=== PATIENT | female | born 1935 | race Caucasian/White ===

== ENCOUNTER → 2024-07-06 08:11 | Outpatient (REF) | payer MEDICARE, OTHER, SELFPAY | LOC: HWRCS 08:11 | PROVIDERS: ATTENDING PHYSICIAN Internal Medicine Cardiovascular Disease; FAMILY PHYSICIAN Family Medicine | DX: I35.0 Nonrheumatic aortic (valve) stenosis (principal) | CPT/HCPCS: 93306 ==

== ENCOUNTER 2024-09-18 13:33 | Inpatient (IN) | payer MEDICARE, OTHER, SELFPAY ==
[2024-09-18] VITALS (8 sets, daily range): BP systolic 110–183; BP diastolic 59–96
[2024-09-18 11:44] LABS: % Basophils 0.6 % (0-2); % Eosinophils 0.4 % (0-6); % Immature Granulocytes 0.4 % (0-0.5); % Lymphocytes 21.9 % (20.5-51.1); % Monocytes 10.7 % (1.7-9.3); Absolute Basophils 0.1 10^3/uL (0-0.2); Absolute Lymphocytes 2.4 10^3/uL (1.2-3.4); Absolute Monocytes 1.2 10^3/uL (0.1-0.6); Absolute Neutrophils 7.3 10^3/uL (1.4-6.5); Hematocrit 36.9 % (37.0-47.0); Hemoglobin 12.4 g/dL (12.0-16.0); Mean Corp Hgb Conc. 33.6 g/dL (33.0-37.0); Mean Corpuscular Volume 89.3 fL (81.0-99.0); Nucleated Red Blood Cells % 0 %; Platelet Count 342 10^3/uL (130-400); Red Blood Cell Count 4.13 10^6/uL (4.20-5.40); Red Cell Dist. Width 14.8 % (11.5-14.5)
[2024-09-18 11:58] LABS: ALT (SGPT) 24 U/L (0-35); AST (SGOT) 33 U/L (14-36); Albumin 4.2 g/dl (3.5-5.0); Alkaline Phosphatase 55 U/L (38-126); Blood Urea Nitrogen 29 mg/dl (7-17); Calcium 9.6 mg/dl (8.4-10.2); Carbon Dioxide 24 mmol/L (22-30); Chloride 102 mmol/L (98-107); Glucose 122 mg/dl (70-99); Potassium 3.7 mmol/L (3.5-5.1); Sodium 139 mmol/L (135-145); Total Bilirubin 0.4 mg/dl (0.2-1.3); Total Protein 7.3 g/dl (6.3-8.2); eGFR > 60.00
--- NOTE | 2024-09-18 12:06 | ED.GENMED ---
History of Present Illness
General
Chief Complaint: Breathing Problem
Time Seen by Provider: 09/18/24 11:55
History of Present Illness
History of Present Illness:
Patient is a 89-year-old woman with history of asthma, hypertension presenting to the emergency department with difficulty breathing. Patient states that 5 days ago she was diagnosed with upper respiratory infection. She feels of her asthma was
getting worse that she talk to her primary care doctor who started her on penicillin as well as prednisone. She did take 60 mg for the past 3 days and is now taking 40 mg. Today she noticed that the breathing was worse and he checked her oxygen at
home and it was 88%. She does take albuterol 2 puffs twice a day and did take nebulizer treatments over the weekend which did help. She did not take any nebulizers today. She is not on oxygen. No leg swelling hemoptysis chest pain. No nausea no
vomiting. No decreased p.o.. Of note patient's has had similar symptoms. Did test COVID and flu which was negative.
Past History
Past History
ED Past Medical History: HTN and Hypercholesterolemia
ED Past Surgical History: Appendectomy, Bowel resection and Gynecological
Social History
Tobacco: Non-smoker
Alcohol: None
Drug: None
Living: with family
Employment: Retired
Phy Exam
Physical Exam
Physical Exam:
GENERAL: in no acute distress
HEENT: normocephalic, extraocular movements intact, moist oral mucosa
NECK: normal inspection
RESPIRATORY: no respiratory distress, wheezing in all lung handy
CARDIOVASCULAR: regular rate and rhythm
ABDOMEN/: soft, non-distended, non-tender to palpation, no rebound or guarding
EXTREMITIES: non-tender, no edema/swelling
NEUROLOGIC: awake and alert, moves all extremities
SKIN: warm
Scores
Heart Failure Risk
Heart Failure Risk Score: Not Applicable
Course
Orders/Labs/Results
Orders:
Orders
09/18/24 11:15
Electrocardiogram (*1) Urgent
Reason for Study: Shortness of Breath
EKG- Treatment ONCE
09/18/24 11:19
CXR2 [CR Chest - 2 Views ] Urgent
Comment:
Reason For Exam: sob
09/18/24 11:23
Complete Blood Count/With Diff Urgent
Comprehensive Metabolic Panel Urgent
NT-proBNP Urgent
Troponin I Urgent
09/18/24 12:05
Ipratropium/Albuterol Sulfate [Duoneb] 3 ml .ROUTE .STK-MED ONE
Ipratropium/Albuterol Sulfate [Duoneb] 3 ml INH R NOW ONE
Abnormal Lab Results
09/18/24
11:23
WBC 11.0 H 10^3/uL
(4.8-10.8)
RBC 4.13 L 10^6/uL
(4.20-5.40)
Hct 36.9 L %
(37.0-47.0)
RDW 14.8 H %
(11.5-14.5)
Absolute Neuts (auto) 7.3 H 10^3/uL
(1.4-6.5)
Absolute Monos (auto) 1.2 H 10^3/uL
(0.1-0.6)
Monocytes % 10.7 H %
(1.7-9.3)
BUN 29 H mg/dl
(7-17)
Glucose 122 H mg/dl
(70-99)
09/18/24 11:23
09/18/24 11:23
Vital Signs
Initial and Last Documented VS:
Initial Vital Signs
Temp Pulse Resp BP Pulse Ox
98.6 F 86 16 142/80 91
09/18/24 11:13 09/18/24 11:13 09/18/24 11:13 09/18/24 11:13 09/18/24 11:13
Last Documented Vital Signs
Temp Pulse Resp BP Pulse Ox
98.6 F 84 25 162/85 90
09/18/24 11:13 09/18/24 11:48 09/18/24 11:48 09/18/24 11:47 09/18/24 11:52
MDM/Problems Addressed
Differential Diagnosis Includes:
Patient is a 89-year-old woman with history of asthma presenting to the emergency department with difficulty breathing in the setting of an asthma exacerbation for the past 5 days. Vitals here notable for room air oxygen of 90%. On 2 L she is in
the mid to high 90s. Exam does show wheezing in all lung handy. Differential consists of superimposed pneumonia versus viral infection causing the asthma exacerbation. History exam not consistent with PE or atypical ACS. Will check blood work
chest x-ray. Will give DuoNeb. Patient will need admission.
*Critical Care Note
Total Time (30-74mins, 75-104mins- exclusive of procedures): Not Applicable
Update Note
Update Note:
Chest x-ray per my interpretation with no focal opacity. Discussed with hospitalist who accepted patient to their service.
ED Attending Note
-
Portions of this chart may have been created with voice recognition software.� Occasional wrong word or��sound alike� substitutions may have occurred due to the inherent limitations of voice recognition software.
Discharge Plan
Departure
Patient Disposition: Admit
Date of Disposition: 09/18/24
Time of Disposition: 12:10
Presentation/result/management discussed w/ accepting MD/DO: Hospitalist
Discharge Problem:
Asthma
Prescriptions:
No Action
prednisone 20 mg Tablet
60 mg PO UD
Rx Instructions:
take 60mg daily for 3 dasy then 40mg daily for 3 dasy then 20mg daily until completed
penicillin V potassium 500 mg Tablet
500 mg PO BID
ibuprofen [Advil] 200 mg Tablet
400 mg PO Q6HPRN PRN (Reason: mild pain)
docusate sodium [Colace] 100 mg Capsule
200 mg PO BID
budesonide-formoterol [Symbicort] 160-4.5 mcg/actuation Hfa Aerosol Inhaler
2 inh INHALATION R BID
metoprolol succinate 25 MG tablet extended release 24 hr
25 mg PO DAILY
Interventions
Interventions:
*Risk Screen - Suicide Last Done: 09/18/24 11:13
*Neglect/Abuse Screening Last Done: 09/18/24 11:13
ED- Cardiac Assessment Last Done: 09/18/24 11:52
ED- Pulmonary Assessment Last Done: 09/18/24 11:52
Discharge Date and Time
Print Language: FAROESE
[2024-09-18 12:08] LABS: NT-proBNP 1140 pg/ml; Troponin I < 0.012 ng/ml
[2024-09-18] MEDS: DUONEB 3 ML INH ×3 (12:13→19:33)
--- NOTE | 2024-09-18 12:40 | HPS.HSE ---
Addendum entered and electronically signed by Perico Mendoza MD 09/18/24 13:18:
I saw and examined the patient.
The SENIOR NETWORK SECURITY ENGINEER or PA's note was reviewed and I agree with the note.
Comment:
89F HX asthma, HTN a/w
Acute Hypoxic RI due to to Acute Asthma Exacerbation
- O2 support
- Pulmicort Nebs
- DuoNeb QID and PRN
- Mucinex
- Prednisone 40mg Daily
- Hold on further antibiotics
Moderate/Severe Aortic Stenosis
- component of fluid retention from outpatient steroids
-- Lasix 40mg IV x one dose now and monitor for response
- f/u Is&Os and Daily Weights
DVT Px; LMWH
Full code
IP TLM
Original Note:
Family Physician
-
Family Physician:
Chief Complaint
-
Shortness of Breath
History of Present Illness
Patient is an 89 y/o female past medical history of asthma, hypertension and moderate/severe aortic stenosis who presents with increased shortness of breath. Patient was seen by her PCP last week for an asthma exacerbation. At which time she was
started on prednisone, penicillin and Symbicort. She report using nebulizers at home over the weekend with some improvement but today symptoms worsened and did not improve with nebulizer. She reports cough that is productive of yellow/green mucus.
She admits to dyspnea on exertion, and orthopnea. She denies lower extremity edema. She denies fevers, sweats or chills.
Medical History
Past Medical History
Past Medical History: Reports Other
Additional Past Medical History:
Essential Hypertension
Asthma
Past Surgical History: Reports Other
Additional Past Surgical History:
Splenectomy
Appendectomy
Colon Resection with Colostomy
Partial Hysterectomy
Right Total Knee Replacement
Left Hip Replacement
Social History
Tobacco: Non-smoker
Alcohol: None
Personal:
Living: With Family
Family History
Family History: Not pertinent
Allergies / Home Medications
Allergies reflects when Allergies were last updated in [facility].
Home Medications with original date entered in [facility]
Allergy/Medication List:
Allergies
Allergy/AdvReac Type Severity Reaction Status Date / Time
moxifloxacin [From Avelox] Allergy Intermediate Hives Verified 09/18/24 11:15
Home Medications
budesonide-formoterol HFA 160 mcg-4.5 mcg/actuation aerosol inhaler (Symbicort) 2 inh inhalation R BID 09/18/24
docusate sodium 100 mg capsule (Colace) 200 mg PO BID 09/18/24
ibuprofen 200 mg tablet (Advil) 400 mg PO Q6HPRN PRN mild pain 09/18/24
metoprolol succinate 25 mg tablet,extended release 24 hr 25 mg PO DAILY 09/18/24
penicillin V potassium 500 mg tablet 500 mg PO BID 09/18/24
prednisone 20 mg tablet 60 mg PO UD 09/18/24
Review of Systems
-
A 12 point ROS was completed and negative except as noted: Yes
Constitutional: Denies Fever or Chills
Respiratory: Reports See HPI
Cardiac: Denies Chest Pain or Palpitations
Physical Exam
Vital Signs
Vital Signs
Temp Pulse Resp BP Pulse Ox
98.6 F 84 25 162/85 90
09/18/24 11:13 09/18/24 11:48 09/18/24 11:48 09/18/24 11:47 09/18/24 11:52
Physical Exam
General: Comfortable and Conversant
HEENT: Moist mucous membranes, Oxygen (Nasal Cannula) and Other (Nebulizer mask in place)
Respiratory: Wheezes (Diffuse) and Non Labored Respirations
Cardiac: S1/S2 and Regular Rhythm
GI: Soft, Non Tender and Other (Protuberant)
Rectal: Deferred by Provider
Musculoskeletal: No Clubbing, No Cyanosis and No Edema
Skin: Warm and Dry
Neuro: Awake, Alert, Oriented and Nonfocal/grossly intact
Psych: Calm
Laboratory Results
-
09/18/24 11:23
09/18/24 11:23
Laboratory Results
Total Bilirubin 0.4 mg/dl (0.2-1.3) 09/18/24 11:23
AST 33 U/L (14-36) 09/18/24 11:23
ALT 24 U/L (0-35) 09/18/24 11:23
Alkaline Phosphatase 55 U/L (38-126) 09/18/24 11:23
Troponin I < 0.012 ng/ml 09/18/24 11:23
Chest X-Ray:
1. Mild acute interstitial cardiogenic pulmonary edema.
2. Mild cardiomegaly.
3. Moderate bilateral lung hyperinflation suggesting chronic obstructive pulmonary disease (COPD).
Echo June 2024:
Mild concentric LVH. Normal left ventricular size and systolic function with with EF 60-65%.
Moderate to Severe Aortic Stenosis.
Moderate Aortic Regurgitation
Data Reviewed
-
Diagnostic Radiology: Report Reviewed by me
Lab Data: Labs Reviewed by me
Old Records: Reviewed
Impression/Plan
-
Acute Hypoxic Respiratory Insufficiency secondary to Acute Asthma Exacerbation
-Continue supplemental oxygen with plans to wean prior to discharge
-Continue Pulmicort Nebs
-Continue DuoNeb QID and PRN
-Continue Mucinex
-Continue Prednisone 40mg Daily
-Hold on further antibiotics
Moderate/Severe Aortic Stenosis
-Suspect component of fluid retention from outpatient steroids
-Give Lasix 40mg IV x one dose now and monitor for response
-Monitor Is&Os and Daily Weights
Essential Hypertension
-Continue metoprolol with hold parameters
Morbid Obesity due to Excess Calories
-Affects all aspects of care
DVT proph: Lovenox
Code Status: Full Code
[2024-09-18] MEDS: LASIX 40 MG IV (13:23)
--- NOTE | 2024-09-18 15:26 | CON.CAR ---
Addendum entered and electronically signed by Brendan Alaniz DO 09/18/24 16:54:
I saw and examined the patient.
The Industrial Maintenance Tech's note was reviewed and I agree with the note.
Comment:
Plan:
HPI: Patient came to [facility] today with SOB and is being admitted with asthma exacerbation and cardiology is consulted for h/o . Patient lives in her own apartment at [facility]. Patient says that within the last week she started with URI symptoms and
felt as though she had increased wheezing. She has a history of asthma exacerbation in the setting of URI and so her PCP started her on antibiotics and steroids, but today she felt worse and her pulse ox was down to 88%. Patient came to ER and
is now admitted with acute asthma exacerbation. Cardiology is consulted for history of . Patient has a remote history of syncope in the with workup at length and all and then also locally when she used to follow-up with Dr. James's
group. She reports tilt table testing and cardiac catheterization in the that were unremarkable and overall her burden of vasovagal syncope has decreased over the years. Patient then saw Dr. Sexton in the office for chest pain last year
and had a Lexiscan nuclear stress test that showed a fixed apical defect with no ischemia. Patient also had an echo around that time that showed moderate AAS with a mean gradient of 23 mmHg. Patient last saw Dr. Sexton in the office on
06/19/2024 and at that point was overall feeling well and they made a plan to recheck her echo which was performed on 07/06/2024 and showed that she now had moderate to severe with a mean gradient of 35 mmHg. Patient says that she has not had any
chest pain, but overall has had more dyspnea on exertion over the last few months. No chest pain currently and patient overall feels better with breathing treatments.
Check echo to reeval . May need to consider TAVR work up as outpt pending findings
Cont tx for multifactorial dyspnea including HF and asthma exacerbation.
Cont IV lasix diuresis. She received IV lasix in ER.
HF teaching.
She has baseline orthopnea which has worsened.
Cont pulm toilet and tx for asthma exacerbation.
Daughter has been updated and agrees with plan.
�
Original Note:
Consultation
Consultation Request
Date/Time Consultation Requested: 09/18/24
Date/Time Consultation Performed: 09/18/24
Requesting Provider: Dr. Mendoza
Performing Provider: Dr. Alaniz
Reason for Consultation: Possible acute HF,
Medical History
-
History of Present Illness:
Patient came to [facility] today with SOB and is being admitted with asthma exacerbation and cardiology is consulted for h/o . Patient lives in her own apartment at [facility]. Patient says that within the last week she started with URI symptoms and felt as
though she had increased wheezing. She has a history of asthma exacerbation in the setting of URI and so her PCP started her on antibiotics and steroids, but today she felt worse and her pulse ox was down to 88%. Patient came to ER and is now
admitted with acute asthma exacerbation. Cardiology is consulted for history of . Patient has a remote history of syncope in the with workup at length and all and then also locally when she used to follow-up with Dr. James's group.
She reports tilt table testing and cardiac catheterization in the that were unremarkable and overall her burden of vasovagal syncope has decreased over the years. Patient then saw Dr. Sexton in the office for chest pain last year and had
a Lexiscan nuclear stress test that showed a fixed apical defect with no ischemia. Patient also had an echo around that time that showed moderate AAS with a mean gradient of 23 mmHg. Patient last saw Dr. Sexton in the office on 06/19/2024 and at
that point was overall feeling well and they made a plan to recheck her echo which was performed on 07/06/2024 and showed that she now had moderate to severe with a mean gradient of 35 mmHg. Patient says that she has not had any chest pain, but
overall has had more dyspnea on exertion over the last few months. No chest pain currently and patient overall feels better with breathing treatments.
PMH:
Asthma
Moderate to severe by echo
HTN
Hyperlipidemia
Past Medical History
Past Medical History: Other (in HPI)
Past Surgical History: Bowel Resection (stoma 2020) and Gynecological (hysterectomy)
Social History
Tobacco: Non-Smoker
Alcohol: None
Drug: None
Family History
Family History: CAD and Cancer
Allergies / Home Medications
Allergy/AdvReac Type Severity Reaction Status Date / Time
moxifloxacin [From Avelox] Allergy Intermediate Hives Verified 09/18/24 11:15
�Medication �Instructions �Recorded �Confirmed �Type
budesonide-formoterol HFA 160 2 inh inhalation R BID 09/18/24 09/18/24 History
mcg-4.5 mcg/actuation aerosol
inhaler (Symbicort)
docusate sodium 100 mg capsule 200 mg PO BID 09/18/24 09/18/24 History
(Colace)
ibuprofen 200 mg tablet (Advil) 400 mg PO Q6HPRN PRN mild pain 09/18/24 09/18/24 History
metoprolol succinate 25 mg 25 mg PO DAILY 09/18/24 09/18/24 History
tablet,extended release 24 hr
penicillin V potassium 500 mg 500 mg PO BID 09/18/24 09/18/24 History
tablet
prednisone 20 mg tablet 60 mg PO UD 09/18/24 09/18/24 History
Review of Systems
-
History Source: Patient and Family (daughter, Giselle, by phone)
All other systems: Negative unless noted
Physical Exam
Vital Signs
Temp Pulse Resp BP Pulse Ox
98.1 F 94 16 149/70 93
09/18/24 15:14 09/18/24 15:14 09/18/24 15:14 09/18/24 15:14 09/18/24 15:14
GEN: NAD. AAOx3
HEENT: EOMI, MMM
LUNGS: Slight expiratory wheeze, wearing NRB with breathing treatment initially, no rales
CV: Reg, S1/S2, 2/6 BSM
ABD: soft, BS+, NT, ND
EXT: No clubbing, cyanosis, lesions or edema B/L
NEURO: Gross non-focal
SKIN: Warm, dry and pink. No rash
Lab Results
09/18/24 11:23
09/18/24 11:23
Troponin I < 0.012 ng/ml 09/18/24 11:23
Ogf-Z-Gxjnembkgca Pept 1140 pg/ml 09/18/24 11:23
Impression / Plan
-
PCP: Dr. Mckoy
Cardiology: Dr. Lott
Impression:
Acute hypoxic respiratory insufficiency
Acute asthma exacerbation
Moderate to severe by echo
HTN
Hyperlipidemia
Echo 08/13/2023: EF 55 to 60%, mitral sclerosis, moderate with mean gradient 23 mmHg
Echo 07/06/2024: EF 60 to 65%, moderate to severe with peak/mean 59/35 mmHg
Plan:
-Patient [facility] today with SOB and is being admitted with asthma exacerbation and cardiology is consulted for h/o . Patient lives in her own apartment at [facility]. Patient says that within the last week she started with URI symptoms and felt
as though she had increased wheezing. She has a history of asthma exacerbation in the setting of URI and so her PCP started her on antibiotics and steroids, but today she felt worse and her pulse ox was down to 88%. Patient came to ER and is
now admitted with acute asthma exacerbation. Cardiology is consulted for history of . Patient has a remote history of syncope in the with workup at length and all and then also locally when she used to follow-up with Dr. James's
group. She reports tilt table testing and cardiac catheterization in the that were unremarkable and overall her burden of vasovagal syncope has decreased over the years. Patient then saw Dr. Sexton in the office for chest pain last year
and had a Lexiscan nuclear stress test that showed a fixed apical defect with no ischemia. Patient also had an echo around that time that showed moderate AAS with a mean gradient of 23 mmHg. Patient last saw Dr. Sexton in the office on
06/19/2024 and at that point was overall feeling well and they made a plan to recheck her echo which was performed on 07/06/2024 and showed that she now had moderate to severe with a mean gradient of 35 mmHg. Patient says that she has not had any
chest pain, but overall has had more dyspnea on exertion over the last few months. No chest pain currently and patient overall feels better with breathing treatments.
-Talked with patient's daughter, Giselle, who is a labor gang supervisor nurse at [employer] for about 14 minutes. We reviewed last 2 echoes and made a plan to check a 3rd echo and pending results to start TAVR work-up.
-We discussed what TAVR work-up entails including cath, CT and visit with CT surgery team and patient is initially agreeable. Patient's daughter is also in agreement and we made a plan to start this as an outpatient pending echo report and to allow
patient to recover from this admission.
-pro-BNP 1140 and CXR suggests mild cardiogenic pulmonary edema. Patient denies LE edema or orthopnea, but has increased BRASWELL lately. Patient was not taking a diuretic as an outpatient and reports symptomatic improvement with nebulizers, but suspect
there may also be an element of acute HF and was given a dose of Lasix 40 mg IV x1 in the ER. Pending Cre in AM will give additional Lasix IV.
-ECG reviewed by me showed SR without acute ST changes.
[2024-09-18] MEDS: LOVENOX 40 MG SC (18:13)
[2024-09-18] MEDS: PULMICORT 0.5 MG INH (19:33)
[2024-09-18] MEDS: MUCINEX 600 MG PO (20:37)
[2024-09-18] MEDS: DESENEX/MITRAZOL/ZEASORB 1 APPLIC TOPICAL (20:37)
[2024-09-19 04:00] VITALS: BP 176/88
[2024-09-19] MEDS: TESSALON PERLES 200 MG PO (04:41)
[2024-09-19 06:00] VITALS: BMI 32.9
[2024-09-19 06:19] LABS: Mean Corp Hgb Conc. 33.3 g/dL (33.0-37.0); Mean Corpuscular Hgb 29.9 pg (27.0-31.0); Mean Corpuscular Volume 89.6 fL (81.0-99.0); Mean Platelet Volume 10.1 fL (7.4-10.4); Platelet Count 332 10^3/uL (130-400); Red Blood Cell Count 4.02 10^6/uL (4.20-5.40); Red Cell Dist. Width 14.6 % (11.5-14.5); White Blood Cell Count 12.9 10^3/uL (4.8-10.8)
[2024-09-19 06:42] LABS: Blood Urea Nitrogen 45 mg/dl (7-17); Calcium 8.9 mg/dl (8.4-10.2); Carbon Dioxide 28 mmol/L (22-30); Chloride 96 mmol/L (98-107); Estimated Creatinine Clearance 31 ml/min; Glucose 82 mg/dl (70-99); Magnesium 1.9 mg/dl (1.6-2.3); Potassium 3.7 mmol/L (3.5-5.1); Sodium 138 mmol/L (135-145); eGFR 39.31
[2024-09-19] MEDS: DUONEB 3 ML INH ×4 (07:18→19:15)
[2024-09-19] MEDS: PULMICORT 0.5 MG INH ×2 (07:19→19:15)
[2024-09-19 07:39] VITALS: BP 144/66
--- NOTE | 2024-09-19 08:30 | PTCARENOTE ---
Pt mentioned to nurse that she felt like she was going to pass out. She then became unresponsive to verbal and tactile stimuli VS taken: BP 88/64 HR 45 on the monitor. BG 126. Rapid response called. When ICU nurses and doctors arrived the pt became
more responsive. After evaluation and improved orientation and VS, ordered to hold morning cardiac meds due to suspected vasovagal response. Continuing to monitor pt.
[2024-09-19 08:41] LABS: Glucose - Point of Care 126 mg/dl (70-99)
[2024-09-19] MEDS: DESENEX/MITRAZOL/ZEASORB 1 APPLIC TOPICAL ×2 (09:01→20:36)
[2024-09-19] MEDS: MUCINEX 600 MG PO ×2 (09:02→20:31)
[2024-09-19] MEDS: SOLU-MEDROL PF 20 MG IV ×2 (09:04→20:30)
[2024-09-19] MEDS: ZITHROMAX 500 MG PO (09:04)
[2024-09-19 09:08] LABS: COVID-19 Antigen Negative (Negative)
[2024-09-19] MEDS: STERILE WATER FOR INJECTION 10 ML IV (09:09)
[2024-09-19] MEDS: TOPROL XL PO (09:09)
[2024-09-19] MEDS: ROCEPHIN 1000 MG IV (09:09)
[2024-09-19] MEDS: NSS 500 IV (09:10)
--- NOTE | 2024-09-19 10:53 | W.PN.HOSP.TC ---
Today's Communication/Plan
-
Vasovagal episode earlier, recovered without supportive measures.
- Given IVF bolus, holding BB for now
Do CT chest, empiric ABx, will need to rule out PNA, screen for COVID/Influenza/ Legionella Ag.
Will follow
Assessment / Plan
Assessment / Plan
Physical Exam
General: Comfortable and Conversant
HEENT: Moist mucous membranes, Oxygen (Nasal Cannula) and Other (Nebulizer mask in place)
Respiratory: Wheezes (Diffuse) and Non Labored Respirations
Cardiac: S1/S2 and Regular Rhythm
GI: Soft, Non Tender and Other (Protuberant)
Rectal: No bleeding
Musculoskeletal: No Clubbing, No Cyanosis and No Edema
Skin: Warm and Dry
Neuro: Awake, Alert, Oriented and Nonfocal/grossly intact
Psych: Calm
# Vasovagal episode/ rapid response called
She recovered without supportive measure
I think it was related to nausea, dehydration. Pt reported hx of vagal episodes in the past but not recently
Given one bolus of NS 500cc , will help with pts with colostomy and underlying
Pt will i
Will hold BB for now, resume later
# Acute Hypoxic Respiratory failure secondary to Acute Asthma Exacerbation
It started as upper respiratory infection but developed distress, hypoxia 88% at home with no improvement despite ABx and prednisone at home
Will do CT chest , start empiric Rocephin, Zithromax
-Continue supplemental oxygen with plans to wean prior to discharge if possible
-Continue Pulmicort Nebs
-Continue DuoNeb QID and PRN
-Continue Mucinex
-screen for COVID/Influenza/ Legionella Ag.
-Change to IV Methylprednisolone
# JOAQUÍN
Hold further diuretics
Give IVF bolus.
#Moderate/Severe Aortic Stenosis
-Suspect component of fluid retention from outpatient steroids
-Monitor Is&Os and Daily Weights
#Essential Hypertension
-Continue metoprolol with hold parameters
#Morbid Obesity due to Excess Calories
-Affects all aspects of care
#DVT proph: Lovenox
Code Status: Full Code
Total time spent to see the patient, examine the patient on the floor, review data and lab results, discuss treatment plan with patient, nursing staff around 55 minutes
Anticipated Discharge: > 48 hours
Subjective/Interval History
-
Date of Service: September 19, 2024
Still cough
Objective Data
-
Labs:
Laboratory Results
09/19/24
05:40
WBC 12.9 H
Hgb 12.0
Hct 36.0 L
Plt Count 332
Sodium 138
Potassium 3.7
Chloride 96 L
Carbon Dioxide 28
BUN 45 H
Creatinine 1.3 H
Glucose 82
Calcium 8.9
Vital Signs:
Vital Signs
Temp Pulse Resp BP Pulse Ox
98.0 F 72 26 144/66 100
09/19/24 07:39 09/19/24 07:39 09/19/24 07:39 09/19/24 07:39 09/19/24 07:39
I&O
09/18/24 09/19/24 09/20/24
06:59 06:59 06:59
Intake Total 720 / 720
Balance 720 / 720
[2024-09-19 11:17] VITALS: BP 163/67
--- NOTE | 2024-09-19 11:27 | W.PN.CARDCBS ---
Addendum entered and electronically signed by Nicol Koch PA-C 09/20/24 11:01:
Patient did not have acute HF.
Addendum entered and electronically signed by Gamaliel Small MD 09/19/24 19:38:
89-year-old woman admitted with asthma/COPD exacerbation in the setting of aortic stenosis and probable acute on chronic HFpEF, proBNP 1140 and CHF on chest x-ray. Patient now feels better today. Daughter is a Artificial Breast [employer]ricator nurse at [employer]. Patient
had rapid response for presumed vagal episode earlier today
PMH/PSH: Aortic stenosis, hypertension,Hyperlipidemia, osteoarthritis, history of syncope, history of bowel obstruction, colostomy, right total knee arthroplasty, left hip fracture, GERD, asthma/COPD
Allergies, outpatient meds reviewed
Current meds metoprolol ER 25 mg daily on hold, Lovenox, Pulmicort, DuoNebs, methylprednisolone, ceftriaxone, Zithromax, received 1 dose IV Lasix
163/67, pulse 74, head neck exam unremarkable, lungs with bilateral wheezes and crackles, aortic stenosis murmur, abdomen benign, trace to 1+ edema.
Echo 09/18/2024: EF 65-70%, MAC, trace MR, moderate aortic stenosis, peak/mean gradient 46/23 mmHg with aortic valve area 1.1 cm2.
White count 12.9, hemoglobin 12, BUN and creatinine 45 and 1.3, creatinine had been 0.9
Plan:
At this point, major issue is pulmonary in origin.
Diuretics are on hold. Metoprolol is on hold. Do not think HFpEF is a major issue and she had a hypotensive episode earlier today. Would avoid additional diuretics at present.
Echocardiogram confirms moderate aortic stenosis with preserved systolic LV function. At present nothing is required from the standpoint.
At present, no new cardiac recommendations.
Focus on treatment for asthma/COPD
Patient can follow-up to her christmas tree grower Dr. Sexton.
We will arrange for outpatient follow-up.
Will sign off, please call if questions.
Original Note:
Today's Communication / Plan
-
Syncope and JOAQUÍN from attempted diuresis. No additional Lasix to be give
Outpatient TAVR eval
Impression / Plan
-
PCP: Dr. Mckoy
Cardiology: Dr. Lott
Impression:
Acute hypoxic respiratory insufficiency
Acute asthma exacerbation
Moderate with peak/mean 46/23 mmHg by echo 09/18/24
HTN
Hyperlipidemia
JOAQUÍN
Syncope 09/19/24
Echo 08/13/2023: EF 55 to 60%, mitral sclerosis, moderate with mean gradient 23 mmHg
Echo 07/06/2024: EF 60 to 65%, moderate to severe with peak/mean 59/35 mmHg
Echo 09/18/2024: EF 65 to 70%, mitral sclerosis without stenosis, calcified cords, moderate peak/mean 46/23 mmHg and RADHA 1.1 cm sq
Plan:
-Syncope 09/19/24 AM. Patient with JOAQUÍN after Lasix 40 mg IV x1 09/18/24 and also noted to be hypotensive. Outpatient dose of Toprol XL 25 mg daily on hold. Patient with a h/o syncope as far back as the with work-up including tilt table study
at [facility] at that time. No other recurrence lately so suspect related to attempted IV diuresis. 500 ml bolus IVFs given as well.
-Doubt patient with acute HF and will not give additional doses of Lasix IV.
-Echo from 09/10/24 and shows stable and preserved EF and gradients are actually a bit better. No urgent needs to TAVR work-up and will refer for outpatient work-up. Also reviewed with patient's daughter, Giselle, who is a phlebotomist medical lab assistant nurse at [employer] and
she might choose to have work-up at [facility].
-Called and talked with patient's daughter, Giselle, again on 09/19/24 and reviewed the syncope episode, echo results and JOAQUÍN from attempted diruesis.
HPI: Patient came to [facility] today with SOB and is being admitted with asthma exacerbation and cardiology is consulted for h/o . Patient lives in her own apartment at [facility]. Patient says that within the last week she started with URI symptoms and
felt as though she had increased wheezing. She has a history of asthma exacerbation in the setting of URI and so her PCP started her on antibiotics and steroids, but today she felt worse and her pulse ox was down to 88%. Patient came to ER and
is now admitted with acute asthma exacerbation. Cardiology is consulted for history of . Patient has a remote history of syncope in the with workup at [facility] and all and then also locally when she used to follow-up with Dr. James's
group. She reports tilt table testing and cardiac catheterization in the that were unremarkable and overall her burden of vasovagal syncope has decreased over the years. Patient then saw Dr. Sexton in the office for chest pain last year
and had a Lexiscan nuclear stress test that showed a fixed apical defect with no ischemia. Patient also had an echo around that time that showed moderate AAS with a mean gradient of 23 mmHg. Patient last [address] Dr. Sexton in the office on
06/19/2024 and at that point was overall feeling well and they made a plan to recheck her echo which was performed on 07/06/2024 and showed that she now had moderate to severe with a mean gradient of 35 mmHg. Patient says that she has not had any
chest pain, but overall has had more dyspnea on exertion over the last few months. No chest pain currently and patient overall feels better with breathing treatments.
Progress Note - Separations Scientist
Subjective
Date of Service: September 19, 2024
Feeling better now after an episode of syncope this morning
Objective
Labs:
09/19/24 05:40
09/19/24 05:40
Labs
Hgb 12.0 g/dL (12.0-16.0) 09/19/24 05:40
Hct 36.0 % (37.0-47.0) L 09/19/24 05:40
Plt Count 332 10^3/uL (130-400) 09/19/24 05:40
Sodium 138 mmol/L (135-145) 09/19/24 05:40
Potassium 3.7 mmol/L (3.5-5.1) 09/19/24 05:40
BUN 45 mg/dl (7-17) H 09/19/24 05:40
Creatinine 1.3 mg/dL (0.6-1.0) H 09/19/24 05:40
Glucose 82 mg/dl (70-99) 09/19/24 05:40
Troponins
09/18/24
11:23
Troponin I < 0.012
Vital Signs and I&O:
Vital Signs
Temp Pulse Resp BP Pulse Ox
98.2 F 80 28 163/67 96
09/19/24 11:17 09/19/24 11:17 09/19/24 11:17 09/19/24 11:17 09/19/24 11:17
Vital Signs
Temp Pulse Resp BP Pulse Ox
98.2 F 80 28 163/67 96
09/19/24 11:17 09/19/24 11:17 09/19/24 11:17 09/19/24 11:17 09/19/24 11:17
Intake & Output
09/17/24 09/18/24 09/19/24 09/20/24
06:59 06:59 06:59 06:59
Intake Total 720 / 720
Balance 720 / 720
Physical Exam
Physical Exam
GEN: NAD. AAOx3
HEENT: EOMI, MMM
LUNGS: Slight expiratory wheeze, 2 L NC
CV: SR on tele
ABD: ND
EXT: No edema B/L
NEURO: Gross non-focal
SKIN: No rash
[2024-09-19 15:20] VITALS: BP 107/64
--- NOTE | 2024-09-19 15:50 | CM ---
CM met with pt, spouse/Bill and dtr [facility]
Pt and spouse reside at [facility]
She is independent with ambulation and personal care with use of a WW
She self care for her colostomy and dtr orders supplies through [facility]
Pt has a working nebulizer and is NOT on oxygen at home
Distance hx with VN and hx at [place]
PCP- Gamaliel Mckoy
Rx- [facility] [address]
Pt notes she is independent throughout the room so far
Dtr is a nurse at [employer]
Discharge Disposition- home, watch for VN needs
[2024-09-19] MEDS: LOVENOX 40 MG SC (17:44)
[2024-09-19 19:25] VITALS: BP 134/74
[2024-09-19] MEDS: TYLENOL 650 MG PO (20:31)
[2024-09-19 23:35] VITALS: BP 151/73
[2024-09-20 03:48] VITALS: BP 156/89
[2024-09-20 06:00] VITALS: BMI 32.9
[2024-09-20 06:03] LABS: Blood Urea Nitrogen 38 mg/dl (7-17); Calcium 8.9 mg/dl (8.4-10.2); Carbon Dioxide 25 mmol/L (22-30); Chloride 101 mmol/L (98-107); Estimated Creatinine Clearance 41 ml/min; Glucose 141 mg/dl (70-99); Sodium 139 mmol/L (135-145); eGFR 53.85
[2024-09-20 06:08] LABS: Potassium 4.4 mmol/L (3.5-5.1)
[2024-09-20 07:15] VITALS: BP 160/79
[2024-09-20] MEDS: DUONEB 3 ML INH ×4 (07:24→19:35)
[2024-09-20] MEDS: PULMICORT 0.5 MG INH ×2 (07:24→19:35)
[2024-09-20] MEDS: MUCINEX 600 MG PO ×2 (08:12→20:56)
[2024-09-20] MEDS: ROCEPHIN 1000 MG IV (08:12)
[2024-09-20] MEDS: ZITHROMAX 500 MG PO (08:12)
[2024-09-20] MEDS: STERILE WATER FOR INJECTION 10 ML IV (08:12)
[2024-09-20] MEDS: SOLU-MEDROL PF 20 MG IV ×2 (08:13→20:56)
[2024-09-20] MEDS: DESENEX/MITRAZOL/ZEASORB 1 APPLIC TOPICAL ×2 (08:16→21:06)
--- NOTE | 2024-09-20 08:59 | PN.CDI ---
CDI
- -
CDI:
Physician Documentation Request
Admit Date: 09/18/24 13:33
Dear Cardiology,
Please review the following and provide your response in the progress notes.
Clinical Indicators:
The diagnosis of heart failure was documented on 09/18 Cardiology note.
- 09/18 Cardiology 'Cont tx for multifactorial dyspnea including HF'
- 'HF teaching'
- 'there may also be an element of acute HF and was given a dose of Lasix'
- 09/18 Echo EF 65-70%
- proBNP 1140
- 09/18 CXR 'Mild acute interstitial cardiogenic pulmonary edema'
- 09/19 Cardiology 'acute on chronic HFpEF'
- 'Doubt patient with acute HF'
Please clarify the following:
____ - Heart failure was present on admission and is now resolved.
____ - Heart failure was present on admission and is still being monitored, evaluated or treated
____ - Heart failure was ruled out
____ - Heart failure is still a likely, suspected, probable diagnosis
____ - Other
Use of terms such as suspected, likely, concern for, or probable (associated with a specific diagnosis that is being evaluated, monitored, or treated as if it exists) are acceptable and can be coded in the inpatient setting, when documented at the
time of discharge.
Thank you,
Jefe Rolon RN
CDI Specialist
Please use your independent medical judgment in providing your response.
[2024-09-20] MEDS: TESSALON PERLES 200 MG PO ×3 (09:58→20:57)
--- NOTE | 2024-09-20 10:12 | W.PN.HOSP.TC ---
Today's Communication/Plan
-
Possible dc on Wednesday if no worsening breathing
c/w IV ABx
c/w IV steroid
Resume BB
Assessment / Plan
Assessment / Plan
Physical Exam
General: Comfortable and Conversant
HEENT: Moist mucous membranes, Oxygen (Nasal Cannula) and Other (Nebulizer mask in place)
Respiratory: Wheezes (Diffuse) and Non Labored Respirations
Cardiac: S1/S2 and Regular Rhythm
GI: Soft, Non Tender and Other (Protuberant)
Rectal: No bleeding
Musculoskeletal: No Clubbing, No Cyanosis and No Edema
Skin: Warm and Dry
Neuro: Awake, Alert, Oriented and Nonfocal/grossly intact
Psych: Calm
# Vasovagal episode/ rapid response called
No recurrent, stable BP, will resume BB
# Acute Hypoxic Respiratory failure secondary to Acute Asthma Exacerbation and bilateral PNA
She is not in distress but still coughing and sob with wheezes.
c/w Rocephin, Zithromax
-Continue supplemental oxygen with plans to wean prior to discharge if possible
-Continue Pulmicort Nebs
-Continue DuoNeb QID and PRN
-Continue Mucinex and make Tessalon TID
-negative screen for COVID/Influenza/ Legionella Ag.
-Changed to IV Methylprednisolone , c/w iV steroid
# JOAQUÍN
Resolving
Holding further diuretics
Given IVF bolus.
#Moderate/Severe Aortic Stenosis
-Suspect component of fluid retention from outpatient steroids
-Monitored Is&Os and Daily Weights
#Essential Hypertension
Uncontrolled, resuming BB
-Continue metoprolol with hold parameters
#Morbid Obesity due to Excess Calories
-Affects all aspects of care
#DVT proph: Lovenox
Code Status: Full Code
Total time spent to see the patient, examine the patient on the floor, review data and lab results, discuss treatment plan with patient, nursing staff around 55 minutes
Anticipated Discharge: 24 - 48 hours
Subjective/Interval History
-
Date of Service: September 20, 2024
She is not feeling much better, still cough with wheezes.
Objective Data
-
Labs:
Laboratory Results
09/20/24
05:20
Sodium 139
Potassium 4.4
Chloride 101
Carbon Dioxide 25
BUN 38 H
Creatinine 1.0
Glucose 141 H
Calcium 8.9
Vital Signs:
Vital Signs
Temp Pulse Resp BP Pulse Ox
98.4 F 74 16 160/79 91
09/20/24 07:15 09/20/24 07:24 09/20/24 07:24 09/20/24 07:15 09/20/24 07:30
I&O
09/19/24 09/20/24 09/21/24
06:59 06:59 06:59
Intake Total 720 / 720 720 / 720
Balance 720 / 720 720 / 720
[2024-09-20 12:01] VITALS: BP 167/79
[2024-09-20 15:12] VITALS: BP 143/69
[2024-09-20] MEDS: TOPROL XL 25 MG PO (15:43)
[2024-09-20] MEDS: LOVENOX 40 MG SC (17:06)
[2024-09-20 19:45] VITALS: BP 152/66
[2024-09-20 23:30] VITALS: BP 176/79
[2024-09-21] VITALS (7 sets, daily range): BP systolic 99–178; BP diastolic 62–81
[2024-09-21] MEDS: PULMICORT 0.5 MG INH (07:19)
[2024-09-21] MEDS: DUONEB 3 ML INH (07:19)
[2024-09-21] MEDS: ZITHROMAX 500 MG PO (07:32)
[2024-09-21] MEDS: MUCINEX 600 MG PO ×2 (07:32→20:26)
[2024-09-21] MEDS: TESSALON PERLES 200 MG PO ×3 (07:32→21:10)
[2024-09-21] MEDS: SOLU-MEDROL PF 20 MG IV ×2 (07:33→20:25)
[2024-09-21] MEDS: ROCEPHIN 1000 MG IV (07:33)
[2024-09-21] MEDS: STERILE WATER FOR INJECTION 10 ML IV (07:33)
[2024-09-21] MEDS: TOPROL XL 25 MG PO (07:34)
[2024-09-21] MEDS: DESENEX/MITRAZOL/ZEASORB 1 APPLIC TOPICAL ×2 (07:44→20:26)
--- NOTE | 2024-09-21 10:01 | W.PN.HOSP.TC ---
Today's Communication/Plan
-
DC on Wednesday
Patient felt Nebs were causing coughing. Will switch back to home inhaler Symbicort
Add Norvasc
Checked blood glucose.
Assessment / Plan
Assessment / Plan
Physical Exam
General: Comfortable and Conversant
HEENT: Moist mucous membranes, Oxygen (Nasal Cannula) and Other (Nebulizer mask in place)
Respiratory: Wheezes (Diffuse) and Non Labored Respirations
Cardiac: S1/S2 and Regular Rhythm
GI: Soft, Non Tender and Other (Protuberant)
Rectal: No bleeding
Musculoskeletal: No Clubbing, No Cyanosis and No Edema
Skin: Warm and Dry
Neuro: Awake, Alert, Oriented and Nonfocal/grossly intact
Psych: Calm
# Vasovagal episode/ rapid response called
No recurrent, stable BP, will resume BB
# Acute Hypoxic Respiratory failure secondary to Acute Asthma Exacerbation and bilateral PNA
She is not in distress but still coughing and sob with wheezes.
c/w Rocephin, Zithromax
-Continue supplemental oxygen with plans to wean prior to discharge if possible
- s/p Pulmicort Nebs/ Duo Neb QID and PRN. Patient felt Nebs were causing coughing. Will switch back to home inhaler Symbicort
-Continue Mucinex and make Tessalon TID
-negative screen for COVID/Influenza/ Legionella Ag.
-Changed to IV Methylprednisolone , c/w IV steroid
# JOAQUÍN
Resolving
Holding further diuretics
Given IVF bolus.
#Moderate/Severe Aortic Stenosis
-Suspect component of fluid retention from outpatient steroids
-Monitored Is&Os and Daily Weights
#Essential Hypertension
Uncontrolled even after resuming BB. I think it is due to steroid therapy
Will give Amlodipine
-Continue metoprolol with hold parameters
#Morbid Obesity due to Excess Calories
-Affects all aspects of care
#DVT proph: Lovenox
Code Status: Full Code
Total time spent to see the patient, examine the patient on the floor, review data and lab results, discuss treatment plan with patient, family, nursing staff around 57 minutes
Anticipated Discharge: 24 - 48 hours
Subjective/Interval History
-
Date of Service: September 21, 2024
No chest pain
No sob
She feels cough is more after Neb treatments
Objective Data
-
Vital Signs:
Vital Signs
Temp Pulse Resp BP Pulse Ox
97.4 F 82 18 160/65 99
09/21/24 07:55 09/21/24 09:26 09/21/24 07:55 09/21/24 09:26 09/21/24 07:55
I&O
09/20/24 09/21/24 09/22/24
06:59 06:59 06:59
Intake Total 720 / 720 1620 / 1620
Output Total 300 / 300
Balance 720 / 720 1320 / 1320
[2024-09-21 10:04] LABS: Glucose - Point of Care 104 mg/dl (70-99)
[2024-09-21] MEDS: NORVASC 5 MG PO (11:22)
[2024-09-21] MEDS: LOVENOX 40 MG SC (16:44)
[2024-09-21] MEDS: SYMBICORT 160/4.5 MCG INHALER 2 PUFF INH (19:23)
[2024-09-21] MEDS: ProAIR HFA INHALER 2 PUFF INH (19:36)
[2024-09-22 03:39] VITALS: BP 163/72
[2024-09-22 05:43] LABS: Hematocrit 32.8 % (37.0-47.0); Hemoglobin 10.9 g/dL (12.0-16.0); Mean Corp Hgb Conc. 33.2 g/dL (33.0-37.0); Mean Corpuscular Hgb 28.8 pg (27.0-31.0); Mean Corpuscular Volume 86.5 fL (81.0-99.0); Mean Platelet Volume 9.9 fL (7.4-10.4); Platelet Count 366 10^3/uL (130-400); Red Blood Cell Count 3.79 10^6/uL (4.20-5.40); Red Cell Dist. Width 14.6 % (11.5-14.5); White Blood Cell Count 10.4 10^3/uL (4.8-10.8)
[2024-09-22 06:03] LABS: Blood Urea Nitrogen 33 mg/dl (7-17); Calcium 9.1 mg/dl (8.4-10.2); Carbon Dioxide 24 mmol/L (22-30); Chloride 104 mmol/L (98-107); Estimated Creatinine Clearance 45 ml/min; Glucose 118 mg/dl (70-99); Potassium 4.5 mmol/L (3.5-5.1); Sodium 140 mmol/L (135-145); eGFR > 60.00
[2024-09-22 07:25] VITALS: BP 149/58
[2024-09-22] MEDS: PULMICORT 0.5 MG INH ×2 (08:25→20:14)
[2024-09-22] MEDS: ROCEPHIN 1000 MG IV (08:25)
[2024-09-22] MEDS: VENTOLIN NEBULES 1.25 MG INH ×3 (08:25→20:14)
[2024-09-22] MEDS: STERILE WATER FOR INJECTION 10 ML IV (08:25)
[2024-09-22] MEDS: ZITHROMAX 500 MG PO (08:26)
[2024-09-22] MEDS: TESSALON PERLES 200 MG PO ×3 (08:26→21:23)
[2024-09-22] MEDS: TOPROL XL 25 MG PO (08:26)
[2024-09-22] MEDS: MUCINEX 600 MG PO ×2 (08:27→21:23)
[2024-09-22] MEDS: SOLU-MEDROL PF 20 MG IV ×2 (08:27→21:22)
[2024-09-22] MEDS: DESENEX/MITRAZOL/ZEASORB 1 APPLIC TOPICAL ×2 (09:46→21:23)
--- NOTE | 2024-09-22 10:59 | W.PN.HOSP.TC ---
Today's Communication/Plan
-
change to albuterol nebs and Pulmicort for now
Assessment / Plan
Assessment / Plan
Physical Exam
General: Comfortable and Conversant
HEENT: Moist mucous membranes, Oxygen (Nasal Cannula) and Other (Nebulizer mask in place)
Respiratory: Wheezes (Diffuse) and Non Labored Respirations
Cardiac: S1/S2 and Regular Rhythm
GI: Soft, Non Tender and Other (Protuberant)
Rectal: No bleeding
Musculoskeletal: No Clubbing, No Cyanosis and No Edema
Skin: Warm and Dry
Neuro: Awake, Alert, Oriented and Nonfocal/grossly intact
Psych: Calm
# Vasovagal episode/ rapid response called
No recurrent, stable BP, will resume BB
# Acute Hypoxic Respiratory failure secondary to Acute Asthma Exacerbation and bilateral PNA
She is not in distress but still coughing and sob with wheezes.
c/w Rocephin, Zithromax
-Continue supplemental oxygen with plans to wean prior to discharge if possible
- s/p Pulmicort Nebs/ Duo Neb QID and PRN. Patient felt Nebs were causing coughing. Will switch back to home inhaler Symbicort
-Continue Mucinex and make Tessalon TID
-negative screen for COVID/Influenza/ Legionella Ag.
-Changed to IV Methylprednisolone , c/w IV steroid
# JOAQUÍN
Resolving
Holding further diuretics
Given IVF bolus.
#Moderate/Severe Aortic Stenosis
-Suspect component of fluid retention from outpatient steroids
-Monitored Is&Os and Daily Weights
#Essential Hypertension
Uncontrolled even after resuming BB. I think it is due to steroid therapy
Will give Amlodipine
-Continue metoprolol with hold parameters
#Morbid Obesity due to Excess Calories
-Affects all aspects of care
#DVT proph: Lovenox
Code Status: Full Code
Total time spent to see the patient, examine the patient on the floor, review data and lab results, discuss treatment plan with patient, family, nursing staff around 57 minutes
Anticipated Discharge: Within 24 hours
Subjective/Interval History
-
Date of Service: September 22, 2024
She feels Symbicort made her cough more
Objective Data
-
Labs:
Laboratory Results
09/22/24
05:22
WBC 10.4
Hgb 10.9 L
Hct 32.8 L
Plt Count 366
Sodium 140
Potassium 4.5
Chloride 104
Carbon Dioxide 24
BUN 33 H
Creatinine 0.9
Glucose 118 H
Calcium 9.1
Vital Signs:
Vital Signs
Temp Pulse Resp BP Pulse Ox
97.7 F 84 18 149/58 94
09/22/24 07:25 09/22/24 08:29 09/22/24 08:29 09/22/24 08:26 09/22/24 08:29
I&O
09/21/24 09/22/24 09/23/24
06:59 06:59 06:59
Intake Total 1620 / 1620 240 / 240
Output Total 300 / 300
Balance 1320 / 1320 240 / 240
[2024-09-22 11:20] VITALS: BMI 32.7
[2024-09-22 11:40] VITALS: BP 165/83
[2024-09-22 16:00] VITALS: BP 161/71
--- NOTE | 2024-09-22 17:03 | CM ---
Spoke with pt in room .
She said MD is changing her nebulizer . She said she is not ready today for dc.
Lives with [place].
On room air.
Self care colostomy care at home.
Lives at [facility].
Offered VN pt declined VN
PLAN Home no needs
[2024-09-22] MEDS: LOVENOX 40 MG SC (17:17)
[2024-09-22 19:17] VITALS: BP 124/84
[2024-09-22 23:41] VITALS: BP 161/73
[2024-09-23 03:27] VITALS: BP 170/78
[2024-09-23 05:00] VITALS: BP 152/69
[2024-09-23 05:49] VITALS: BMI 32.6
[2024-09-23] MEDS: VENTOLIN NEBULES 1.25 MG INH ×3 (07:12→20:13)
[2024-09-23] MEDS: PULMICORT 0.5 MG INH ×2 (07:12→20:13)
[2024-09-23 07:53] VITALS: BP 152/92
[2024-09-23] MEDS: ZITHROMAX 500 MG PO (08:10)
[2024-09-23] MEDS: TESSALON PERLES 200 MG PO ×3 (08:10→21:11)
[2024-09-23] MEDS: SOLU-MEDROL PF 40 MG IV ×2 (08:11→21:14)
[2024-09-23] MEDS: MUCINEX 600 MG PO ×2 (08:11→21:11)
[2024-09-23] MEDS: ROCEPHIN 1000 MG IV (08:11)
[2024-09-23] MEDS: STERILE WATER FOR INJECTION 10 ML IV (08:11)
[2024-09-23] MEDS: DESENEX/MITRAZOL/ZEASORB 1 APPLIC TOPICAL ×2 (08:12→21:10)
[2024-09-23] MEDS: TOPROL XL 25 MG PO (08:12)
--- NOTE | 2024-09-23 11:02 | W.PN.HOSP.TC ---
Today's Communication/Plan
-
DC on hold, maybe later or tomorrow
c/w steroid
Neb
Add Amlodipine
Assessment / Plan
Assessment / Plan
Physical Exam
General: Comfortable and Conversant
HEENT: Moist mucous membranes, Oxygen (Nasal Cannula) and Other (Nebulizer mask in place)
Respiratory: Wheezes (Diffuse), rhonchi, and Non Labored Respirations
Cardiac: S1/S2 and Regular Rhythm
GI: Soft, Non Tender and Other (Protuberant)
Rectal: No bleeding
Musculoskeletal: No Clubbing, No Cyanosis and No Edema
Skin: Warm and Dry
Neuro: Awake, Alert, Oriented and Nonfocal/grossly intact
Psych: Calm
# Vasovagal episode/ rapid response called
No recurrent, stable BP, resumed BB
# Acute Hypoxic Respiratory failure secondary to Acute Asthma Exacerbation and bilateral PNA
She is not in distress but still coughing and sob with wheezes. Lung exam c/w wheezes and rales
c/w Rocephin for total of 7 days ( can change to oral Cefdinir upon dc). ,
Finished 5 days of oral Zithromax
-Continue supplemental oxygen with plans to wean prior to discharge if possible
- s/p Pulmicort Nebs/ Duo Neb QID and PRN. Patient felt Nebs were causing coughing. we tried inhaler Symbicort but she did not like it, placed back on Albuterol Neb and Pumicort
Will increase dose of Solu Medrol to 40 mg BID.
-Continue Mucinex and make Tessalon TID
-negative screen for COVID/Influenza/ Legionella Ag.
# JOAQUÍN
Resolving
iven IVF bolus.
#Moderate/Severe Aortic Stenosis
Avoid hypotension.
#Essential Hypertension
Uncontrolled. Added Amlodipine . I think it is due to steroid therapy
-Continue metoprolol with hold parameters
#Morbid Obesity due to Excess Calories
-Affects all aspects of care
#DVT proph: Lovenox
Code Status: Full Code
Total time spent to see the patient, examine the patient on the floor, review data and lab results, discuss treatment plan with patient, family, nursing staff around 57 minutes
Anticipated Discharge: Within 24 hours
Subjective/Interval History
-
Date of Service: September 23, 2024
She reports that cough is worse
Objective Data
-
Vital Signs:
Vital Signs
Temp Pulse Resp BP Pulse Ox
97.7 F 74 16 152/92 98
09/23/24 07:53 09/23/24 07:53 09/23/24 07:53 09/23/24 07:53 09/23/24 07:53
I&O
09/22/24 09/23/24 09/24/24
06:59 06:59 05:59
Intake Total 240 / 240 1400 / 1400
Balance 240 / 240 1400 / 1400
[2024-09-23 11:24] VITALS: BP 136/93
[2024-09-23] MEDS: NORVASC 5 MG PO (12:39)
--- NOTE | 2024-09-23 12:42 | CON.PUL ---
Consultation
Consultation Request
Date/Time Consultation Requested: 09/23
Date/Time Consultation Performed: 09/23
Reason for Consultation: Shortness of breath, asthma
Medical History
-
History of Present Illness:
History obtained from the patient. Also reviewed hospital records, outpatient records. Patient is an 89-year-old female with history of longstanding asthma, bowel resection in the past with colostomy 2019 secondary to bowel obstruction, history of
aspiration syndrome/dysphagia last seen by pulmonary 2020 during hospital stay but now presents with increased shortness of breath. She typically gets prednisone, antibiotics and inhaler with flareups of her asthma. This typically happens 1-2
times a week. However she had a new provider at her primary care office and she states that she was not given the medication she normally does. She coughs up yellow-green mucus but denies fevers, sweats, chills. For this reason she brought
herself into [facility] where upon arrival, afebrile, pulse 86, breathing at 16, blood pressure 142/80, 91%. Of note patient does check her oxygen level at home and it went down to about 89 or 90%. She had diffuse wheezing. Chest x-ray
was unremarkable. Patient was admitted for asthma exacerbation. We are asked to help from pulmonary standpoint.
.
PMH: History of asthma, small bowel obstruction, bowel resection with colostomy in April 2020, with prior stricture and stent placement while in [place]. History of hypertension, hypercholesterolemia, aortic stenosis, osteoarthritis. History of
splenectomy, questionable psoriasis, anemia. History of knee replacement, hip replacement, breast surgery for benign cyst
Past Medical History
Past Medical History: None (At)
Past Surgical History: None (See above)
Social History
Tobacco: Non-smoker
Alcohol: None
Drug: None
Personal:
Living: Alone
Employment: Retired
Family History
Family History: Other (3 children healthy. Mother had colon cancer)
Allergies / Home Medications
Allergies
Allergy/AdvReac Type Severity Reaction Status Date / Time
moxifloxacin [From Avelox] Allergy Intermediate Hives Verified 09/18/24 11:15
Home Medications
�Medication �Instructions �Recorded �Confirmed �Last Taken �Type
budesonide-formoterol HFA 160 2 inh inhalation R BID 09/18/24 09/18/24 Unknown History
mcg-4.5 mcg/actuation aerosol Lung/Breathing Issues
inhaler (Symbicort)
docusate sodium 100 mg capsule 200 mg PO BID Constipation 09/18/24 09/18/24 09/18/24 History
(Colace)
ibuprofen 200 mg tablet (Advil) 400 mg PO Q6HPRN PRN mild pain 09/18/24 09/18/24 3 Days Ago History
~09/15/24
metoprolol succinate 25 mg 25 mg PO DAILY Blood Pressure 09/18/24 09/18/24 09/18/24 History
tablet,extended release 24 hr
penicillin V potassium 500 mg 500 mg PO BID Infection 09/18/24 09/18/24 09/18/24 History
tablet
prednisone 20 mg tablet 60 mg PO UD Anti-Inflammatory 09/18/24 09/18/24 09/18/24 History
40 mg
Review of Systems
-
All other systems: Negative unless noted
Vitals / Labs / Diagnostic Testing
Vital Signs
Temp Pulse Resp BP Pulse Ox
97.6 F 73 16 136/93 95
09/23/24 11:24 09/23/24 11:24 09/23/24 11:24 09/23/24 11:24 09/23/24 11:24
Lab Data
09/22/24 05:22
09/22/24 05:22
Diagnostic Testing:
Physical Exam
-
HEENT: Normocephalic, Anicteric and Other (Large neck)
Cardiovascular: S1/S2, Regular Rhythm, Murmur (2/6 systolic murmur) and Rub (n)
Respiratory: Wheeze (Diffuse expiratory), Rales (n), Rhonchi (Few) and Non-Labored Respirations
GI: Soft, Non Distended (Obese) and Non Tender
Neurology: Awake, Alert and No Motor Deficits (Able to sit up without assistance)
Skin: Good Color
General: Comfortable
Assessment
-
89-year-old female with history of asthma, not on maintenance inhaler therapy, presents with 1 week of increased respiratory symptoms. Per records, she was treated by her primary provider but not the way that she typically is. Now admitted for
asthma exacerbation
Acute asthma exacerbation
Diffuse wheezing on exam
Bronchial airway thickening, per CT imaging
Questionable esophageal distention/distal abnormality
Abnormal per CT imaging
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
History of dysphagia, hospitalized in 2020
Conditions present prior to admission
Hypertension/hyperlipidemia
History of aortic stenosis
Valve area 1.1 cm� per echo 09/18/2024
Anemia
History of splenectomy
Bowel obstruction requiring stent, colon resection, ostomy 2019
While in [place]
Family history of colon cancer
Suspected sleep disordered breathing
Plan/recommendations
At this time, it is noted that the patient has significant wheezing and rhonchi on exam
I did review her CT chest. She has bilateral bronchial airway thickening with evidence of bronchial airway plugs. Unclear whether this is a infectious process or just an airway clearance process
Furthermore, she does have esophageal findings on her CT imaging
Unclear whether there may be some narrowing in the middle of esophagus as there is a fluid-filled distal esophagus noted
Hospital stay in 2020 for dysphagia noted
Patient denies any dysphagia symptoms
Moving forward
I do think we need to ramp up her airway clearance and asthma treatment
Patient does not take her routine Symbicort as outpatient
Do not suspect heart failure
Did not respond to treatment for heart failure, developed hypotension. Echocardiogram with EF 70%, aortic stenosis, valve area 1.1 cm�
Continue with empiric steroids
Check VSE
Continue budesonide twice a day, will add Atrovent
Continue ceftriaxone
We will consider spirometry at bedside 09/25
GERD prophylaxis: Add Protonix
DVT prophylaxis: Remains on enoxaparin
Reviewed with patient above plan
Will follow
[2024-09-23 15:50] VITALS: BP 152/81
[2024-09-23] MEDS: PROTONIX 40 MG PO (16:11)
--- NOTE | 2024-09-23 17:45 | PTOTSP ---
ST Consult
Received and appreciate consultation for VFSS. Chart reviewed. Pt has been previously evaluated by CONCRETE SAW OPERATOR in 2019 during which time pt was deemed to present with an oral mechanism that was WFL and swallow function that was WFL - pt was recommended for
regular solids and thin liquids. CONCRETE SAW OPERATOR signed off at this time. No major medical events (e.g. CVA, head/neck cancer) have been reported since this previous evaluation that could account for any dysphagia with the exception of possibly presbyphagia.
During this admission, pt was admitted from [facility] for difficulty breathing. CT Chest showed mild bilateral lower lobe PNA and thyroid gland nodularity. Pt is afebrile and on room air. Pt's WBC was elevated to 12.9 on admission. Lab work also
significant for BUN 45 and creatinine of 1.3 on admission, which have improved. Pt also found to have moderate/severe aortic stenosis with fluid retention. Pt reports eating and drinking regular solids and thin liquids at baseline with no issues. Pt
with a reported productive cough, indicating that pt's cough is likely strong enough to protect airway (provided she has an adequate sensory response) in the event of an aspiration event.
Given the information listed above, would recommend first starting with a comprehensive CONCRETE SAW OPERATOR bedside swallowing evaluation to determine if a VFSS is truly warranted at this time to prevent the pt from receiving any unnecessary radiation exposure. If
VFSS is still desired by MD, will need to wait until Wednesday to be completed.
[2024-09-23] MEDS: LOVENOX 40 MG SC (18:28)
[2024-09-23] MEDS: ATROVENT NEBULES 0.5 MG INH (20:13)
[2024-09-23] MEDS: FLUSH (NSS) 1 FLUSH IV (21:15)
[2024-09-23 23:25] VITALS: BP 153/72
[2024-09-24 06:00] VITALS: BMI 32.6
[2024-09-24 07:25] VITALS: BP 170/83
[2024-09-24] MEDS: PULMICORT 0.5 MG INH ×2 (07:36→20:02)
[2024-09-24] MEDS: ATROVENT NEBULES 0.5 MG INH ×3 (07:36→20:02)
[2024-09-24] MEDS: VENTOLIN NEBULES 1.25 MG INH ×3 (07:36→20:02)
[2024-09-24] MEDS: TESSALON PERLES 200 MG PO ×3 (08:57→21:03)
[2024-09-24] MEDS: TOPROL XL 25 MG PO (08:57)
[2024-09-24] MEDS: ROCEPHIN 1000 MG IV (08:58)
[2024-09-24] MEDS: SOLU-MEDROL PF 40 MG IV ×2 (08:58→21:04)
[2024-09-24] MEDS: STERILE WATER FOR INJECTION 10 ML IV (08:58)
[2024-09-24] MEDS: PROTONIX 40 MG PO (08:58)
[2024-09-24] MEDS: MUCINEX 600 MG PO ×2 (08:58→21:03)
[2024-09-24] MEDS: DESENEX/MITRAZOL/ZEASORB 1 APPLIC TOPICAL ×2 (09:02→20:58)
--- NOTE | 2024-09-24 09:35 | W.PN.HOSP.TC ---
Today's Communication/Plan
-
Video swallow Wednesday
IV steroid for today, no changes.
Increase amlodipine dose.
Assessment / Plan
Assessment / Plan
Physical Exam
General: Comfortable and Conversant
HEENT: Moist mucous membranes, Oxygen (Nasal Cannula) and Other (Nebulizer mask in place)
Respiratory: Wheezes (Diffuse), rhonchi, and Non Labored Respirations
Cardiac: S1/S2 and Regular Rhythm
GI: Soft, Non Tender and Other (Protuberant)
Rectal: No bleeding
Musculoskeletal: No Clubbing, No Cyanosis and No Edema
Skin: Warm and Dry
Neuro: Awake, Alert, Oriented and Nonfocal/grossly intact
Psych: Calm
# Vasovagal episode/ rapid response called on 09/19
Hx of vagal episode in past but not recent. Avoid hypotension.
No recurrent, stable BP, resumed BB
# Acute Hypoxic Respiratory failure secondary to Acute Asthma Exacerbation and bilateral PNA
She is not in distress but still coughing and sob with wheezes. Lung exam c/w wheezes and rales ( not much improved). No change to steroid therapy for today.
c/w Rocephin. Total abx needed f 7 days- last dose Tuesday 09/25 .
Finished 5 days of oral Zithromax
- Weaned off nasal O2
- c/w Ipratropium / albuterol Pulmicort Nebs. Tried inhaler Symbicort but she did not like it, placed back on Albuterol Neb and Pulmicort
- Increased dose of Solu Medrol to 40 mg BID.
-Continue Mucinex and Tessalon TID
-negative screen for COVID/Influenza/ Legionella Ag.
- Appreciate pulmonary input.
# Ct chest showed mild fluid distention of the distal esophagus, which may be related to reflux or dysmotility.
Will do video study
d/w pulmonary doctor, could be reflux
# JOAQUÍN
Resolved.
s/p IVF bolus.
#Moderate/Severe Aortic Stenosis
Avoid hypotension.
#Essential Hypertension
Uncontrolled. Added Amlodipine, increase to 10 mg QD. I think it is due to steroid therapy
-Continue metoprolol with hold parameters
#Morbid Obesity due to Excess Calories
-Affects all aspects of care
#DVT proph: Lovenox
Code Status: Full Code
Total time spent to see the patient, examine the patient on the floor, review data and lab results, discuss treatment plan with patient, family, nursing staff around 57 minutes
Anticipated Discharge: Within 24 hours
Subjective/Interval History
-
Date of Service: September 24, 2024
No chest pain
No sob
No worsening sob
Objective Data
-
Vital Signs:
Vital Signs
Temp Pulse Resp BP Pulse Ox
97.8 F 77 16 170/83 96
09/24/24 07:25 09/24/24 07:59 09/24/24 07:39 09/24/24 07:25 09/24/24 07:39
I&O
09/23/24 09/24/24 09/25/24
07:59 06:59 06:59
Intake Total
Balance
[2024-09-24] MEDS: NORVASC 10 MG PO (10:25)
[2024-09-24 12:00] VITALS: BP 141/70
--- NOTE | 2024-09-24 12:52 | W.PN.PUL3 ---
Today's Communication / Plan
-
Bedside spirometry in a.m.
VSE in a.m.
No change in steroids
Prefer to continue budesonide/Atrovent as outpatient
Outpatient pulmonary follow-up
Assessment
-
89-year-old female with history of asthma, not on maintenance inhaler therapy, presents with 1 week of increased respiratory symptoms. Per records, she was treated by her primary provider but not the way that she typically is. Now admitted for
asthma exacerbation
Acute asthma exacerbation
Diffuse wheezing on exam
Bronchial airway thickening, per CT imaging
Questionable esophageal distention/distal abnormality
Abnormal per CT imaging
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
History of dysphagia, hospitalized in 2020
Conditions present prior to admission
Hypertension/hyperlipidemia
History of aortic stenosis
Valve area 1.1 cm� per echo 09/18/2024
Anemia
History of splenectomy
Bowel obstruction requiring stent, colon resection, ostomy 2019
While in [place]
Family history of colon cancer
Suspected sleep disordered breathing
Plan/recommendations
At this time, it is noted that the patient has significant wheezing and rhonchi on exam
However improved on today's exam
I did review her CT chest. She has bilateral bronchial airway thickening with evidence of bronchial airway plugs. Unclear whether this is a infectious process or just an airway clearance process
Furthermore, she does have esophageal findings on her CT imaging
Unclear whether there may be some narrowing in the middle of esophagus as there is a fluid-filled distal esophagus noted
Hospital stay in 2020 for dysphagia noted
Patient denies any dysphagia symptoms
Moving forward
Continue with current airway clearance measures
Budesonide/Atrovent nebulizer
No change with steroid dosing
Patient does not take her routine Symbicort as outpatient
She does have a nebulizer and I would prefer she continue nebulizer at time of discharge
Do not suspect heart failure
Did not respond to treatment for heart failure, developed hypotension. Echocardiogram with EF 70%, aortic stenosis, valve area 1.1 cm�
Continue with empiric steroids, no change
Check VSE, ordered
Continue budesonide twice a day, will add Atrovent
Continue ceftriaxone
We will consider spirometry at bedside 09/25
GERD prophylaxis: Continue Protonix
DVT prophylaxis: Remains on enoxaparin
Patient would benefit from pulmonary follow-up. Information left in chart
Subjective Data
-
Date of Service:
Date of Service: September 24, 2024
Subjective:
Patient states feels somewhat better today. Eating breakfast, examined earlier today. Less wheeze, less cough. Denies chest pain. Denies swallowing dysfunction, dysphagia
Objective Data
Data Reviewed
Vital Signs / I&O / Oxygen:
Vital Signs
Temp Pulse Resp BP Pulse Ox
97.8 F 77 16 170/83 96
09/24/24 07:25 09/24/24 07:59 09/24/24 07:39 09/24/24 07:25 09/24/24 07:39
Intake and Output
09/23/24 09/24/24 09/25/24
07:59 06:59 06:59
Intake Total
Balance
SaO2 96
Nasal Cannula flow liters per 2
minute
Physical Exam
General: Comfortable
HEENT: Normocephalic and Anicteric
Cardiovascular: S1-S2, Regular Rhythm, Murmur (2/6 systolic murmur) and Rub (n)
Respiratory: Wheeze (Few scattered), Crackles (n), Rhonchi (Improved) and Non-Labored Respirations
GI: Soft, Non Distended and Non Tender
Neurology: Awake and Alert
Skin: Cyanosis (n), Jaundice (n) and Rash (n)
Labs/Micro/Reports
Lab Data
09/22/24 05:22
09/22/24 05:22
[2024-09-24 15:20] VITALS: BP 130/65
[2024-09-24] MEDS: LOVENOX 40 MG SC (17:37)
[2024-09-24 23:53] VITALS: BP 141/67
[2024-09-25 05:54] LABS: Hematocrit 34.5 % (37.0-47.0); Hemoglobin 11.8 g/dL (12.0-16.0); Mean Corp Hgb Conc. 34.2 g/dL (33.0-37.0); Mean Corpuscular Volume 87.8 fL (81.0-99.0); Mean Platelet Volume 9.9 fL (7.4-10.4); Platelet Count 354 10^3/uL (130-400); Red Blood Cell Count 3.93 10^6/uL (4.20-5.40); Red Cell Dist. Width 14.2 % (11.5-14.5)
[2024-09-25 06:00] VITALS: BMI 32.7
[2024-09-25 06:19] LABS: Blood Urea Nitrogen 36 mg/dl (7-17); Calcium 9.1 mg/dl (8.4-10.2); Carbon Dioxide 24 mmol/L (22-30); Chloride 103 mmol/L (98-107); Estimated Creatinine Clearance 45 ml/min; Glucose 134 mg/dl (70-99); Potassium 4.1 mmol/L (3.5-5.1); Sodium 139 mmol/L (135-145); eGFR > 60.00
[2024-09-25 07:27] VITALS: BP 169/78
--- NOTE | 2024-09-25 07:50 | W.PN.PUL3 ---
Today's Communication / Plan
-
Continue nebulized bronchodilators + budesonide
Antitussants prn
DC home on nebs and maintenance inhaler therapy will be discussed/started as an outpatient
Esophageal residue with backflow seen on VSE from today to follow-up with GI as an outpatient
Continue with Solu-Medrol and hopefully can start weaning by tomorrow
Outpatient pulmonary follow-up
Pulmonary service will continue to follow along while she remains hospitalized
Assessment
-
89-year-old female with history of asthma, not on maintenance inhaler therapy, presents with 1 week of increased respiratory symptoms. Per records, she was treated by her primary provider but not the way that she typically is. Now admitted for
asthma exacerbation
Impression:
Acute asthma exacerbation
Diffuse wheezing on exam (now improved)
Bilateral pneumonia with patchy opacities seen in the lower lobes on CT chest from 09/19/2024
Bronchial airway thickening, per CT imaging
Questionable esophageal distention/distal abnormality
Abnormal per CT imaging
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
History of dysphagia, hospitalized in 2020
Conditions present prior to admission
Hypertension/hyperlipidemia
History of aortic stenosis
Valve area 1.1 cm� per echo 09/18/2024
Anemia
History of splenectomy
Bowel obstruction requiring stent, colon resection, ostomy 2019
While in [place]
Family history of colon cancer
Suspected sleep disordered breathing
Plan/recommendations
At this time, it is noted that the patient has significant wheezing and rhonchi on exam, although improved compared to admission
I did review her CT chest from 09/19/2024. She has bilateral bronchial airway thickening with evidence of mucoid impacting/plugging. Unclear whether this is a infectious process or just an airway clearance issue
Furthermore, she does have esophageal dilation on her CT imaging
Unclear whether there may be some narrowing in the middle of esophagus as there is a fluid-filled distal esophagus noted --> VSE from today shows no overt signs of aspiration although there was esophageal residue with backflow --> rec'd GI follow up
as an outpatient
Hospital stay in 2020 for dysphagia noted
Patient denies any dysphagia symptoms
Moving forward
Continue with current airway clearance measures
Mucolytics with mucinex
Antitussants with codeine/guaifenesin
Nebulized budesonide/Atrovent/albuterol
Continue with Solu-Medrol 40 mg IV BID --> hopefully by tomorrow we can start weaning
Patient does not take her routine Symbicort as outpatient as she says that 'she does not feel like she needs to'
She does have a nebulizer machine at home and I would prefer she continue nebulizer at time of discharge with eventual transition to MDI vs DPI maintenance inhalers
Do not suspect heart failure
Did not respond to treatment for heart failure, developed hypotension. Echocardiogram with EF 70%, moderate aortic stenosis, valve area 1.1 cm�
She is s/p 5 days Zithromax and currently on Rocephin - would complete 7-10 days worth of Abx assuming she continues to clinically improve and remains afebrile for 48 hours prior to stopping antibiotics
Tried to do spirometry today but due to her persistent coughing spells, finishing technician was unable to perform testing. This will be obtained as an outpatient with a full PFT
GERD prophylaxis: Continue Protonix
DVT prophylaxis: Remains on enoxaparin
Patient would benefit from pulmonary follow-up. Information left in chart
Pulmonary service will continue to follow along while she remains hospitalized.
Total time spent today was 36 minutes for this encounter. Time includes reviewing laboratory test/imaging results, reviewing pertinent medical records, obtaining and reviewing medical history, performing an appropriate exam, ordering medications,
tests and procedures. Time also includes documentation of this encounter, coordinating patient care and communicating with other healthcare professionals. Total time does not include separately billed tests performed on this date of service.
Subjective Data
-
Date of Service:
Date of Service: September 25, 2024
Chief Complaint: Pulmonary Follow Up
Subjective:
Patient seen and evaluated at bedside today. On room air breathing comfortably saturating 95%. Afebrile overnight. Still having coughing spells but she says that overall she feels better - she does not know the color of her phlegm. She is
currently on room air breathing comfortably. No acute overnight events reported.
Review of Systems
General: Other (Negative unless mentioned above)
Objective Data
Data Reviewed
Vital Signs / I&O / Oxygen:
Vital Signs
Temp Pulse Resp BP Pulse Ox
97.9 F 72 20 169/78 97
09/25/24 07:27 09/25/24 07:27 09/25/24 07:27 09/25/24 07:27 09/25/24 07:27
Intake and Output
09/24/24 09/25/24 09/26/24
06:59 06:59 06:59
Intake Total 1620 / 1620
Balance 1620 / 1620
SaO2 97
Nasal Cannula flow liters per 2
minute
Physical Exam
General: Respiratory Distress (negative), Comfortable, Chills (negative) and Sweats (negative)
HEENT: Normocephalic and Anicteric
Cardiovascular: S1-S2, Regular Rhythm, Murmur (2/6 systolic murmur) and Rub (n)
Respiratory: Wheeze (Few scattered), Crackles (bibasilar), Rhonchi (bilateral in middle lung handy) and Non-Labored Respirations
GI: Soft, Non Distended, Non Tender and Normal Bowel Sounds
Neurology: AO x 3 and Tremors (negative)
Skin: Warm, Dry, Cyanosis (n), Jaundice (n) and Rash (n)
Labs/Micro/Reports
Lab Data
09/25/24 05:30
09/25/24 05:30
[2024-09-25] MEDS: ATROVENT NEBULES 0.5 MG INH ×3 (08:06→19:07)
[2024-09-25] MEDS: VENTOLIN NEBULES 1.25 MG INH ×3 (08:06→19:08)
[2024-09-25] MEDS: PULMICORT 0.5 MG INH ×2 (08:06→19:07)
[2024-09-25] MEDS: TESSALON PERLES 200 MG PO ×3 (08:19→21:48)
[2024-09-25] MEDS: TOPROL XL 25 MG PO (08:20)
[2024-09-25] MEDS: PROTONIX 40 MG PO (08:20)
[2024-09-25] MEDS: MUCINEX 600 MG PO ×2 (08:20→21:48)
[2024-09-25] MEDS: STERILE WATER FOR INJECTION 10 ML IV (08:21)
[2024-09-25] MEDS: NORVASC 10 MG PO (08:21)
[2024-09-25] MEDS: SOLU-MEDROL PF 40 MG IV ×2 (08:22→21:48)
[2024-09-25] MEDS: ROCEPHIN 1000 MG IV (08:22)
[2024-09-25] MEDS: DESENEX/MITRAZOL/ZEASORB 1 APPLIC TOPICAL ×2 (08:22→21:48)
--- NOTE | 2024-09-25 08:50 | PTOTSP ---
Speech Language Pathology
VIDEOFLUOROSCOPIC SWALLOWING EXAMINATION (VSE) completed. Overall, pt with oropharyngeal swallow WFL. No penetration/aspiration noted with only trace intermittent pharyngeal residue. Esophageal residue noted on sweep with backflow. Backflow also
noted from PES into pyriform sinuses at times.
Recommend:
(1) Continue regular solids/thin liquids
(2) General aspiration precautions
(3) Esophageal precautions
(4) Meds as tolerated
(5) Consider GI consult
(6) CLIENT INSIGHTS CONSULTANT to sign off. Please reconsult as indicated
--- NOTE | 2024-09-25 12:56 | RESPNOTE ---
Bedside PFT attempted but patient was unable to complete due to coughing episodes during testing.
--- NOTE | 2024-09-25 14:39 | W.PN.HOSP.TC ---
Today's Communication/Plan
-
continue PPI
steroid management per pulm
continue Rocephin, day 7
Assessment / Plan
Assessment / Plan
Assessment:
Vagal syncope
- CLOTH CUTTING INSPECTOR 09/19
- Vitals stable, no reoccurrence
- monitor
Acute Hypoxic Respiratory failure secondary to Acute Asthma Exacerbation and bilateral Pneumonia
- CT: bilateral bronchial airway thickening with evidence of bronchial airway plugs
- s/p Azithromycin x 5 days
- continue Ceftriaxone
- continue IV steroids
- continue nebs/inhalers (Budesonide and Atrovent)
- continue mucolytics, cough suppression
- Pulmonary consulting
Mild distention lower Esophagus
- possibly from reflux or dysmotility
- s/p VSE: continue regular solids/thins
- patient reports no symptoms
- continue PPI daily
- OP GI referral
JOAQUÍN - resolved after IVF
Moderate/Severe
- avoid hypotension
Essential Hypertension
- continue BB/CCB
Morbid Obesity due to Excess Calories
- Affects all aspects of care
DVT ppx: Lovenox
Code: Full
Anticipated Discharge: > 48 hours
Subjective/Interval History
-
Date of Service: September 25, 2024
reports breathing and wheezing improving
Objective Data
-
Labs:
Laboratory Results
09/25/24
05:30
WBC 12.0 H
Hgb 11.8 L
Hct 34.5 L
Plt Count 354
Sodium 139
Potassium 4.1
Chloride 103
Carbon Dioxide 24
BUN 36 H
Creatinine 0.9
Glucose 134 H
Calcium 9.1
Vital Signs:
Vital Signs
Temp Pulse Resp BP Pulse Ox
97.9 F 90 14 169/78 95
11/04/24 07:27 09/25/24 12:55 09/25/24 12:55 09/25/24 07:27 09/25/24 08:11
I&O
09/24/24 09/25/24 09/26/24
06:59 06:59 06:59
Intake Total 1620 / 1620
Balance 1620 / 1620
Physical Exam
-
General: No Apparent Distress
HEENT: Normocephalic and Atraumatic
Respiratory: Wheezes (faint); Negative Rales
Cardiac: Regular Rhythm and S1/S2
GI: Soft and Nontender
Genito-urinary: No Costovertebral Tender
Musculoskeletal: No Edema
Neuro: AO x 3
Hematologic / Lymphatic: No Lymphadenopathy
Psych: Calm
Data Reviewed
-
Total Time Spent with Patient (in minutes): 42
Labs: Labs Reviewed by me
[2024-09-25 15:45] VITALS: BP 146/62
[2024-09-25 16:15] VITALS: PULSE 82; O2SAT 95
--- NOTE | 2024-09-25 16:22 | PTOTSP ---
The patient demonstrated independence with ambulation using a walker, SpO2 remained stable on room air. Patient offered no concerns regarding mobility upon return home. No PT needs identified at this time, will sign off.
[2024-09-25] MEDS: LOVENOX 40 MG SC (17:31)
[2024-09-25 23:30] VITALS: BP 143/68
[2024-09-26 06:00] VITALS: BMI 32.7
[2024-09-26 06:27] LABS: Hematocrit 35.3 % (37.0-47.0); Hemoglobin 11.8 g/dL (12.0-16.0); Mean Corp Hgb Conc. 33.4 g/dL (33.0-37.0); Mean Corpuscular Hgb 29.5 pg (27.0-31.0); Mean Corpuscular Volume 88.3 fL (81.0-99.0); Mean Platelet Volume 9.9 fL (7.4-10.4); Platelet Count 376 10^3/uL (130-400); Red Cell Dist. Width 14.5 % (11.5-14.5); White Blood Cell Count 11.6 10^3/uL (4.8-10.8)
[2024-09-26 06:53] LABS: Blood Urea Nitrogen 32 mg/dl (7-17); Calcium 8.9 mg/dl (8.4-10.2); Carbon Dioxide 24 mmol/L (22-30); Chloride 103 mmol/L (98-107); Estimated Creatinine Clearance 45 ml/min; Glucose 130 mg/dl (70-99); Sodium 140 mmol/L (135-145); eGFR > 60.00
[2024-09-26 07:20] VITALS: BP 152/88
[2024-09-26] MEDS: PULMICORT 0.5 MG INH (07:49)
[2024-09-26] MEDS: ATROVENT NEBULES 0.5 MG INH ×2 (07:49→13:52)
[2024-09-26] MEDS: VENTOLIN NEBULES 1.25 MG INH ×2 (07:49→13:52)
[2024-09-26] MEDS: NORVASC 10 MG PO (08:14)
[2024-09-26] MEDS: TESSALON PERLES 200 MG PO (08:14)
[2024-09-26] MEDS: TOPROL XL 25 MG PO (08:14)
[2024-09-26] MEDS: PROTONIX 40 MG PO (08:15)
[2024-09-26] MEDS: MUCINEX 600 MG PO (08:15)
[2024-09-26] MEDS: SOLU-MEDROL PF 40 MG IV (08:15)
[2024-09-26] MEDS: ROCEPHIN 1000 MG IV (08:15)
[2024-09-26] MEDS: STERILE WATER FOR INJECTION 10 ML IV (08:16)
[2024-09-26] MEDS: DESENEX/MITRAZOL/ZEASORB 1 APPLIC TOPICAL (08:18)
--- NOTE | 2024-09-26 09:18 | W.PN.PUL3 ---
Today's Communication / Plan
-
Continue nebulized bronchodilators + budesonide
Antitussants prn
DC home on DuoNebs QID + budesonide 0.5mg BID with prn albuterol MDI; maintenance inhaler therapy will be discussed/started as an outpatient
Esophageal residue with backflow seen on VSE from yesterday; she is to follow-up with GI as an outpatient
Change Solu-Medrol to prednisone taper, starting at 40 mg and reduce by 10 mg every fifth day until off
Outpatient pulmonary follow-up
Patient is being prepared for discharge home today. No additional pulmonary recommendations at this time. Pulmonary service will now sign off. Please reconsult if there are any additional questions/concerns, or if patient's respiratory status
deteriorates.
Assessment
-
89-year-old female with history of asthma, not on maintenance inhaler therapy, presents with 1 week of increased respiratory symptoms. Per records, she was treated by her primary provider but not the way that she typically is. Now admitted for
asthma exacerbation
Impression:
Acute asthma exacerbation
Diffuse wheezing on exam (now resolved as od 09/26/2024)
Bilateral pneumonia with patchy opacities seen in the lower lobes on CT chest from 09/19/2024
Bronchial airway thickening, per CT imaging
Questionable esophageal distention/distal abnormality
Abnormal per CT imaging
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
History of dysphagia, hospitalized in 2020
Conditions present prior to admission
Hypertension/hyperlipidemia
History of aortic stenosis
Valve area 1.1 cm� per echo 09/18/2024
Anemia
History of splenectomy
Bowel obstruction requiring stent, colon resection, ostomy 2019
While in [place]
Family history of colon cancer
Suspected sleep disordered breathing
Plan/recommendations
Her wheezing has now resolved as of today
I did review her CT chest from 09/19/2024. She has bilateral bronchial airway thickening with evidence of mucoid impacting/plugging. Unclear whether this is a infectious process or just an airway clearance issue
Furthermore, she does have esophageal dilation on her CT imaging
Unclear whether there may be some narrowing in the middle of esophagus as there is a fluid-filled distal esophagus noted --> VSE from yesterday (09/25/2024) showed no overt signs of aspiration although there was esophageal residue with backflow -->
rec'd GI follow up as an outpatient
Hospital stay in 2020 for dysphagia noted
Patient denies any dysphagia symptoms
Moving forward
Continue with current airway clearance measures
Mucolytics with mucinex
Antitussants with codeine/guaifenesin
Nebulized budesonide/Atrovent/albuterol
Continue with Solu-Medrol 40 mg IV BID --> okay to start weaning today, starting at prednisone 40 mg daily and reducing by 10 mg every fifth day until off
Patient does not take her routine Symbicort as outpatient as she says that 'she does not feel like she needs to'
She does have a nebulizer machine at home and I would prefer she continue nebulizer at time of discharge with eventual transition to MDI vs DPI maintenance inhalers
Do not suspect heart failure
Did not respond to treatment for heart failure, developed hypotension. Echocardiogram with EF 70%, moderate aortic stenosis, valve area 1.1 cm�
She is s/p 5 days Zithromax and currently on Rocephin (today is day #8) --> ok to stop ABx now
Tried to do spirometry on 09/25/2024 but due to her persistent coughing spells, audiovisual lead technician was unable to perform testing. This will be obtained as an outpatient with a full PFT
GERD prophylaxis: N/A -> she is on PPI as an outpatient ; continue this
DVT prophylaxis: Enoxaparin
Patient would benefit from pulmonary follow-up. Information left in chart
Patient is being prepared for discharge home today. No additional pulmonary recommendations at this time. Pulmonary service will now sign off. Thank you for allowing us to be involved in the care of this patient. Please reconsult if there are
any additional questions/concerns, or if patient's respiratory status deteriorates.
Total time spent today was 38 minutes for this encounter. Time includes reviewing laboratory test/imaging results, reviewing pertinent medical records, obtaining and reviewing medical history, performing an appropriate exam, ordering medications,
tests and procedures. Time also includes documentation of this encounter, coordinating patient care and communicating with other healthcare professionals. Total time does not include separately billed tests performed on this date of service.
Subjective Data
-
Date of Service:
Date of Service: September 26, 2024
Chief Complaint: Pulmonary Follow Up
Subjective:
Patient seen and evaluated today at bedside. She feels much better overall. Was able to bring up some off white/slightly yellow phlegm this morning. Currently on room air breathing comfortably. Ready to go home but only if I feel that she is
ready. She is walking around the room and denies any shortness of breath or chest pain. Afebrile overnight. She denies chest pain, CASTILLO, abdominal pain, nausea, fevers or chills.
Review of Systems
General: Other (Negative unless mentioned above)
Objective Data
Data Reviewed
Vital Signs / I&O / Oxygen:
Vital Signs
Temp Pulse Resp BP Pulse Ox
97.7 F 78 17 152/88 97
09/26/24 07:20 09/26/24 07:52 09/26/24 07:52 09/26/24 07:20 09/26/24 07:52
Intake and Output
09/25/24 09/26/24 09/27/24
06:59 06:59 06:59
Intake Total 1620 / 1620 1040 / 1040
Balance 1620 / 1620 1040 / 1040
SaO2 97
Nasal Cannula flow liters per 2
minute
Physical Exam
General: Respiratory Distress (negative), Comfortable, Chills (negative) and Sweats (negative)
HEENT: Normocephalic and Anicteric
Cardiovascular: S1-S2, Regular Rhythm, Murmur (2/6 systolic murmur), Rub (n) and Peripheral Edema (negative)
Respiratory: Wheeze (negative), Crackles (bibasilar + right middle lung field), Rhonchi (bilateral in middle lung handy) and Non-Labored Respirations
GI: Soft, Non Distended, Non Tender and Normal Bowel Sounds
Neurology: AO x 3 and Tremors (negative)
Skin: Warm, Dry, Cyanosis (n), Jaundice (n) and Rash (n)
Labs/Micro/Reports
Lab Data
09/26/24 05:58
09/26/24 05:58
--- NOTE | 2024-09-26 11:23 | W.PN.HOSP.TC ---
Today's Communication/Plan
-
follow pulm recs for possible DC
Assessment / Plan
Assessment / Plan
Assessment:
Vagal syncope
- [employer] 09/19
- Vitals stable, no reoccurrence
- monitor
Acute Hypoxic Respiratory failure secondary to Acute Asthma Exacerbation and bilateral Pneumonia
- CT: bilateral bronchial airway thickening with evidence of bronchial airway plugs
- s/p Azithromycin x 5 days
- continue Ceftriaxone, day 07/01
- continue IV steroids - consider transition to PO/wean if ok with pulmonary
- continue nebs/inhalers (Budesonide and Atrovent, Albuterol)
- continue mucolytics, cough suppression
- Pulmonary consulting
- not compliant with Symbicort, can re-assess outpatient maintenance inhaler after in office full PFTs
Mild distention lower Esophagus
- possibly from reflux or dysmotility
- s/p VSE: continue regular solids/thins
- patient reports no symptoms
- continue PPI daily
- OP GI referral
JOAQU[facility]N - resolved after IVF
Moderate/Severe
- avoid hypotension
Essential Hypertension
- continue BB/CCB
Morbid Obesity due to Excess Calories
- Affects all aspects of care
DVT ppx: Lovenox
Code: Full
Anticipated Discharge: Within 24 hours
Subjective/Interval History
-
Date of Service: September 26, 2024
reports improving in breathing and bringing up sputum
no SOB, hypoxia
no fever/chills
Objective Data
-
Labs:
Laboratory Results
09/26/24
05:58
WBC 11.6 H
Hgb 11.8 L
Hct 35.3 L
Plt Count 376
Sodium 140
Potassium 4.0
Chloride 103
Carbon Dioxide 24
BUN 32 H
Creatinine 0.9
Glucose 130 H
Calcium 8.9
Vital Signs:
Vital Signs
Temp Pulse Resp BP Pulse Ox
97.7 F 78 17 152/88 97
09/26/24 07:20 09/26/24 07:52 09/26/24 07:52 09/26/24 07:20 09/26/24 07:52
I&O
09/25/24 09/26/24 09/27/24
06:59 06:59 06:59
Intake Total 1620 / 1620 1040 / 1040
Balance 1620 / 1620 1040 / 1040
Physical Exam
-
General: No Apparent Distress
HEENT: Normocephalic and Atraumatic
Respiratory: Decreased Breath Sounds; Negative Wheezes
Cardiac: Regular Rhythm and S1/S2
GI: Soft
Genito-urinary: No Costovertebral Tender
Neuro: AO x 3
Hematologic / Lymphatic: No Lymphadenopathy
Psych: Calm
Data Reviewed
-
Total Time Spent with Patient (in minutes): 42
Labs: Labs Reviewed by me
--- NOTE | 2024-09-26 14:21 | W.DS.TRANS ---
DC Summary - [employer]
-
Discharge Instructions:
Discharge Diagnosis/Procedures acute asthma exacerbation, hypoxia (resolved)
and double pneumonia
Diet Regular
Activity As tolerated
Bathing Restrictions None
Instructions:
Stand-Alone Forms:
Changes to Home Medications: No
Discharge Medications:
DC Medications w/original date entered in [employer]
docusate sodium 100 mg capsule (Colace) 200 mg PO BID Constipation 09/18/24
albuterol sulfate 90 mcg/actuation aerosol inhaler 2 puff inhalation R Q4HPRN PRN SOB,wheezes #8.5 grams 09/26/24
amlodipine 10 mg tablet 10 mg PO DAILY #30 tabs 09/26/24
benzonatate 100 mg capsule 200 mg (2 x 100 mg) PO TID #60 caps 09/26/24
budesonide 0.5 mg/2 mL suspension for nebulization 0.5 mg (2 mL) inhalation R BID #60 mL 09/26/24
cefdinir 300 mg capsule 300 mg PO BID #4 caps 09/26/24
codeine 10 mg-guaifenesin 100 mg/5 mL oral liquid 10 ml PO Q4HPRN PRN Cough #240 mL 09/26/24
guaifenesin 600 mg tablet, extended release 12 hr 600 mg PO Q12 #30 tabs 09/26/24
ipratropium 0.5 mg-albuterol 3 mg (2.5 mg base)/3 mL nebulization soln 3 ml inhalation QID #90 mL 09/26/24
metoprolol succinate 25 mg tablet,extended release 24 hr 25 mg PO DAILY Blood Pressure #30 tabs 09/26/24
pantoprazole 40 mg tablet,delayed release 40 mg PO DAILY #30 tabs 09/26/24
prednisone 10 mg tablet 10 mg PO DIRECTED #50 tabs 09/26/24
Home Medication Changes
Pending Results: No
Total time spent discharging patient (in min): 41
--- NOTE | 2024-09-26 14:43 | CM ---
entered order for discharge.
She said she is ready for discharge.
She said her Chase will drive her home..
On room air.
Self care colostomy care at home.
Lives at [facility].
Offered VN she requested [facility] Liaison Yanelis notified.
PLAN Home with [facility]
--- NOTE | 2024-09-26 14:47 | VNURNOTE ---
Home Health Liaison spoke with patient to discuss [facility] nurse/therapy, visits, schedule and homebound status. Patient is agreeable and understands that visits at home will be 2-3 x per week to assess and teach medical management. Patient is aware
that [facility] will contact them for start of care in 1-2 days after discharge from . [facility] referral completed in [facility].
[2024-09-26 14:52] VITALS: BP 156/71
== END 2024-09-26 16:17 | disposition home health service (06) | DRG 193 ==
LOC: 3 WEST ACU 13:33
PROVIDERS: Emergency Medicine; Internal Medicine; Physician Assistant Medical; ADMITTING PHYSICIAN Internal Medicine; ATTENDING PHYSICIAN Internal Medicine; CONSULT PHYSICIAN Internal Medicine Critical Care Medicine; CONSULT PHYSICIAN Nuclear Medicine Nuclear Cardiology; EMERGENCY PHYSICIAN Student in an Organized Health Care Education/Training Program; FAMILY PHYSICIAN Family Medicine
DX: J18.9 Pneumonia, unspecified organism (principal); J96.01 Acute respiratory failure with hypoxia; J45.901 Unspecified asthma with (acute) exacerbation; N17.9 Acute kidney failure, unspecified; D64.9 Anemia, unspecified; I35.0 Nonrheumatic aortic (valve) stenosis; I10 Essential (primary) hypertension; E66.01 Morbid (severe) obesity due to excess calories; Z68.32 Body mass index [BMI] 32.0-32.9, adult; E78.00 Pure hypercholesterolemia, unspecified; I25.10 Atherosclerotic heart disease of native coronary artery without angina pectoris; K21.9 Gastro-esophageal reflux disease without esophagitis; M19.90 Unspecified osteoarthritis, unspecified site; Z79.52 Long term (current) use of systemic steroids; Z79.899 Other long term (current) drug therapy; Z87.19 Personal history of other diseases of the digestive system; Z90.49 Acquired absence of other specified parts of digestive tract; Z90.81 Acquired absence of spleen; Z96.642 Presence of left artificial hip joint; Z96.651 Presence of right artificial knee joint; Z88.1 Allergy status to other antibiotic agents
CPT/HCPCS: 93308; 71046; 71250; 74230; 80048; 80053; 82962; 83735; 83880; 84484; 85025; 85027; 87502; 87811; 92611; 93005; 93321; 93325; 94640; 97161; 99285